=== PATIENT | male | born 1995 | race Caucasian/White ===

== ENCOUNTER 2018-07-03 02:43 | Emergency (ER) | payer BC, OTHER ==
[~2018-07-03 02:43] MED LIST: AMOX500T10 PO; HYDR-653 PO
[2018-07-03 02:44] VITALS: BP 146/93
--- NOTE | 2018-07-03 02:50 | ER Report ---
History and Physical Time Seen By MD: 02:44 Hx. of Stated Complaint: Usp Clearance HPI/ROS CHIEF COMPLAINT: Usp clearance HISTORY OF PRESENT ILLNESS: 23-year-old male brought in by police for detention clearance. Patient admits to heavy alcohol ingestion. He has slurred speech. Patient voices no complaints. Patient denies significant past medical history. REVIEW OF SYSTEMS: Respiratory: No cough, no dyspnea. Cardiovascular: No chest pain, no palpitations. Gastrointestinal: No vomiting, no abdominal pain. Musculoskeletal: No back pain. Allergies: Coded Allergies: No Known Drug Allergies (Unverified , 07/14/16) Home Meds Active Scripts Hydrocodone Bit/Acetaminophen (NORCO 5-325 TABLET) 1 Each Tablet, 1 EACH PO Q4- 6H PRN for PAIN, #12 TAB Prov:CEDRICK HILL [facility] 07/14/16 Amoxicillin 500 Mg Tab (AMOXICILLIN 500 MG TAB) 500 Mg Tablet, 1 TAB PO Q8H, #30 TAB Prov:CEDRICK HILL [employer] 07/14/16 Reviewed Nurses Notes: Yes Old Medical Records Reviewed: Yes Hx Smoking: No Smoking Status: Former Smoker Hx Substance Use Disorder: No Hx Alcohol Use: No Constitutional Vital Sign - Last 24 Hours 07/03/18 02:44 Temp 97.5 Pulse 88 Resp 16 B/P (MAP) 146/93 Pulse Ox 95 O2 Delivery Room Air Physical Exam General Appearance: The patient is alert, has no immediate need for airway protection and no current signs of toxicity. Vital signs stable, afebrile, pulse ox normal, palpation of the head and neck reveal no tenderness or trauma HEENT: Pupils equal and round no injection. TMs normal, oropharynx without dental trauma Respiratory: Chest is non tender, lungs are clear to auscultation. No chest wall tenderness Cardiac: regular rate and rhythm Gastrointestinal: Abdomen is soft and non tender, no masses, bowel sounds normal. Musculoskeletal: Neck: Neck is supple and non tender. Extremities have full range of motion and are non tender. Skin: No rashes or lesions. DIFFERENTIAL DIAGNOSIS: After history and physical exam differential diagnosis was considered for detention clearance, alcohol intoxication, polysubstance abuse Medical Decision Making ED Course/Re-evaluation ED Course Patient was admitted to an examination room. H&P was done. The differential diagnoses was considered. On clinical examination. Patient has a normal examination. His vital signs are stable. He voices no complaints. He is medical cleared for detention admission. Decision to Disposition Date: Jul 03, 2018 Decision to Disposition Time: 02:49 Depart Departure Latest Vital Signs Vital Signs Date Time Temp Pulse Resp B/P (MAP) Pulse Ox O2 Delivery O2 Flow Rate FiO2 07/03/18 02:44 97.5 88 16 146/93 95 Room Air Impression: Primary Impression: Medical clearance for incarceration Additional Impression: Alcohol intoxication Condition: Improved Disposition: [facility] TO CARE HOME/CORRECTIONAL F Patient Instructions: Alcohol Intoxication (ED) Additional Instructions: Patient medically cleared for detention admission Problem Qualifiers Additional Impression: Alcohol intoxication Complication of substance-induced condition: uncomplicated Qualified Codes: F10.920 - Alcohol use, unspecified with intoxication, uncomplicated SAL HENLEY DO Jul 03, 2018 02:50
== END 2018-07-03 02:57 ==
LOC: ER 02:47
DX: F10.920 Alcohol use, unspecified with intoxication, uncomplicated (principal)
CPT/HCPCS: 99281

== ENCOUNTER 2018-08-11 14:38 | Emergency (ER) | payer BC ==
[2018-08-11 14:42] VITALS: BP 127/86
--- NOTE | 2018-08-11 15:12 | ER Report ---
History and Physical Time Seen By MD: 14:56 Hx. of Stated Complaint: sore in mouth HPI/ROS CHIEF COMPLAINT: Sore mouth HISTORY OF PRESENT ILLNESS: 23-year-old male patient presents to emergency room with complaint of sore in his mouth. Patient states he's had this for the past couple of days. Patient states that it is not terribly tender unless he tested with his tongue. His biggest concern is that he may have oral cancer. Patient states he does have a 10 year history of chewing tobacco. Patient states that he is in the process of quitting. Patient denies any fevers, chills, nausea, vomiting or diarrhea. Allergies: Coded Allergies: No Known Drug Allergies (Unverified , 08/11/18) Home Meds Discontinued Scripts Hydrocodone Bit/Acetaminophen (NORCO 5-325 TABLET) 1 Each Tablet, 1 EACH PO Q4- 6H PRN for PAIN, #12 TAB Prov:CEDRICK HILL [facility] 07/14/16 Amoxicillin 500 Mg Tab (AMOXICILLIN 500 MG TAB) 500 Mg Tablet, 1 TAB PO Q8H, #30 TAB Prov:CEDRICK HILL [facility] 07/14/16 Past Medical/Surgical History Patient denies any pertinent medical history. Patient has a surgical history of facial surgery following injury caused by a roof falling on him. Reviewed Nurses Notes: Yes Hx Smoking: No Smoking Status: Former Smoker Hx Substance Use Disorder: No Hx Alcohol Use: No Constitutional Vital Sign - Last 24 Hours 08/11/18 14:42 Temp 98.5 Pulse 69 Resp 14 B/P (MAP) 127/86 Pulse Ox 98 O2 Delivery Room Air Physical Exam General appearance: Alert no distress. Respiratory: Chest is non tender, lungs are clear to auscultation. Cardiac: Regular rate and rhythm. ENT: Tympanic membranes are pearly-belle, auditory canals are patent, mucous members are moist. Patient does have some circular lesions on the inside of his lower lip. They are yellow on an erythematous base. DIFFERENTIAL DIAGNOSIS: After history and physical exam differential diagnosis was considered for oral cancer, herpetic lesion, aphthous ulcers Medical Decision Making ED Course/Re-evaluation ED Course Patient examined, history and physical were obtained. Differential diagnoses were considered. On examination lungs are clear, heart is regular, patient does have a yellow lesion on an erythematous base. It is located on the inside of his lower lip. Patient has no tenderness to palpation. Patient does appear to have leukoplakia to the left side mouth, where he commonly puts his chewing tobacco. There is no lumps that are noted. Patient had no enlarged lymph nodes. I discussed my findings with patient. Since patient's not having any discomfort we will refrain from prescribing any medication this time. I would like him follow- up with his dentist for evaluation was given his mouth. Patient was encouraged to quit chewing. Patient verbalized understanding and agreement with plan. Decision to Disposition Date: Aug 11, 2018 Decision to Disposition Time: 15:09 Depart Departure Latest Vital Signs Vital Signs Date Time Temp Pulse Resp B/P (MAP) Pulse Ox O2 Delivery O2 Flow Rate FiO2 08/11/18 14:42 98.5 69 14 127/86 98 Room Air Impression: Primary Impression: Canker sores oral Additional Impression: Leukoplakia Condition: Improved Disposition: HOME OR SELF-CARE Patient Instructions: Canker Sores (ED) Additional Instructions: Increase fluid intake. Get plenty of rest. Follow up with your dentist as previously scheduled. Continue to work on quitting chewing tobacco. You can use Orajel if you have worsening pain. Return to the ER if condition worsens. Problem Qualifiers CEDRICK HILL Aug 11, 2018 15:12
== END 2018-08-11 15:22 | disposition home or self-care (01) ==
LOC: ER 15:11
DX: K12.0 Recurrent oral aphthae (principal); K13.21 Leukoplakia of oral mucosa, including tongue; F17.220 Nicotine dependence, chewing tobacco, uncomplicated
CPT/HCPCS: 99281